=== PATIENT | female | born 1960 | race Caucasian/White ===

== ENCOUNTER → 2020-11-10 11:43 | Outpatient (CLI) | payer OTHER, MEDICAID, SELFPAY ==
--- NOTE | 2020-11-10 11:51 | DI.CT.S_ITS ---
PROCEDURE: CT ABDOMEN PELVIS WO CON INDICATIONS: Unspecified renal colic TECHNIQUE: Noncontrast 5 mm thick sections acquired from the diaphragms to the symphysis. 5 mm thick coronal and sagittal reformats were then performed. For radiation dose reduction, the following was used: automated exposure control, adjustment of mA and/or kV according to patient size. COMPARISON: [facility], , CT IVP, 09/19/2006, 10:28. FINDINGS: Image quality: Excellent. Lung bases: Lung bases are clear. Heart size is normal. Urinary system: Both kidneys are normal in size. No kidney stones. No hydronephrosis or perinephric fat stranding. Both ureters appear non-dilated throughout their expected courses. Bladder wall thickness is normal; no calcified bladder stones. Other solid organs: Liver is normal in size. Gallbladder is unremarkable. Pancreas is normal in contours. Spleen is normal in size. No adrenal nodules. Peritoneum and bowel: Unenhanced bowel loops demonstrate normal wall thickness and caliber. No free fluid or air. Scant sigmoid colon diverticula without acute inflammation. Normal appendix. Nodes and vessels: No retroperitoneal or mesenteric adenopathy by size criteria. Aorta and inferior vena cava are normal in caliber. Abdominal wall: No ventral hernias. Pelvis: No free pelvic fluid. No inguinal hernias. No pelvic adenopathy. Bones: No suspicious bony lesions. No acute vertebral body compression fractures. There is minimal grade 1 anterolisthesis of L5 on S1 secondary to bilateral L5 pars defects. Likely bone island involving the medial margin of the right inferior pubic ramus. IMPRESSION: 1. CT abdomen and pelvis without acute abnormalities to explain patient's history of renal colic. 2. Scant colonic diverticulosis without acute diverticulitis. 3. Normal appendix. 4. Grade 1 anterolisthesis of L5 on S1 secondary to bilateral L5 pars defects. Dictated by: Michael Solorzano M.D. on 11/10/2020 at 22:25 Approved by: Michael Solorzano M.D. on 11/10/2020 at 22:36
== END ==
PROVIDERS: Family Provider Physician Assistant; PCP Physician Assistant; Referring Provider Physician Assistant; Visit Provider Physician Assistant
DX: N23 Unspecified renal colic (principal); M43.17 Spondylolisthesis, lumbosacral region; Z87.442 Personal history of urinary calculi
CPT/HCPCS: 74176

== ENCOUNTER 2021-02-02 13:36 | Emergency (ER) | payer OTHER, MEDICAID, SELFPAY ==
[2021-02-02 13:40] VITALS: BP 144/72; PULSE 77; RESP 16; TEMP 36.5; O2SAT 98
--- NOTE | 2021-02-02 14:18 | ED.GENADULT ---
HPI - General Adult General Chief complaint: Eye Problems Stated complaint: SWELLING OF RIGHT EYE Time Seen by Provider: 02/02/21 13:47 Source: patient Mode of arrival: Ambulatory Limitations: no limitations History of Present Illness HPI narrative: Patient is a 60-year-old female here for evaluation of swelling under her right eye. She states that she needs started noticing the swelling this morning with the irritation was last evening. No fevers. She does wear contact lenses but is wearing glasses today. Has had dental issues in the past but none currently. Related Data Allergies Allergy/AdvReac Type Severity Reaction Status Date / Time codeine Allergy Verified 02/02/21 14:14 Penicillins Allergy Verified 02/02/21 14:14 Review of Systems Constitutional Constitutional: Denies fever(s) Eyes Eyes: Denies exophthalmos and Denies change in vision Comments: Irritation to the right eye, swelling under the right eye ENT Ears, Nose, Mouth, and Throat: Denies sore throat Respiratory Respiratory: Denies cough Integumentary/Breasts Comments: Redness in right eye Hematologic/Lymphatic On Anticoagulants: No Allergic/Immunologic Allergic/Immunologic: Denies urticaria Patient History Medical History Healthy adult Social History Smoking Status: Never smoker Smoking Status: Never smoker alcohol intake frequency: 0-2 drinks per day Substance Use Type: does not use Exam Initial Vital Signs Initial Vital Signs: Vital Signs Temperature 97.7 F 02/02/21 13:40 Pulse Rate 77 02/02/21 13:40 Respiratory Rate 16 02/02/21 13:40 Blood Pressure 144/72 H 02/02/21 13:40 Pulse Oximetry 98 02/02/21 13:40 Const General: cooperative, healthy appearing and comfortable Limitations: mental status not altered HENMT Head: normal to inspection and normocephalic Eyes General: appearance normal, both eyes and all related structures Alignment and Position: alignment normal Sclera: sclerae normal Pupils: PERRL Other: Patient does have a small white area on the inferior temporal lid consistent with stye Resp Effort & Inspection: normal respiratory effort Skin Lesions: no lesions Other: Slight redness under right eye Extrem General: normal to inspection Course Vital Signs Vital signs: Vital Signs - 8 hr 02/02/21 13:40 Temperature 97.7 F Pulse Rate 77 Respiratory Rate 16 Blood Pressure 144/72 H Pulse Oximetry 98 Medical Decision Making MDM Narrative Medical decision making narrative: Physical exam today is consistent with a stye. Low suspicion for periorbital/orbital cellulitis. Also low suspicion for foreign body. Patient was given return precautions and follow-up instructions. She expressed understanding and agreement. Discharge Plan Departure Patient Disposition: Home Clinical Impression: Hordeolum externum (stye) Instructions: DI for Hordeolum Activity Restrictions/Additional Instructions: I recommend that you where your glasses until your symptoms have resolved. You can also use warm compresses. If the redness of the swelling extends past where it currently is then you should be re-evaluated. Contact your primary provider for follow-up. Referrals: Nohelia Lakhani PA-C [Primary Care Provider] -
== END 2021-02-02 14:27 | disposition home or self-care (01) ==
PROVIDERS: Emergency Provider Emergency Medicine; Family Provider Physician Assistant; PCP Physician Assistant
DX: H00.012 Hordeolum externum right lower eyelid (principal)
CPT/HCPCS: 99281

== ENCOUNTER 2022-05-28 07:59 | Emergency (ER) | payer OTHER, MEDICAID, SELFPAY ==
[2022-05-28] VITALS (12 sets, daily range): BP systolic 140–193; BP diastolic 60–97; PULSE 55–69; RESP 18; TEMP 36.4; O2SAT 98–100; BMI 20.7
--- NOTE | 2022-05-28 08:18 | DI.CT.S_ITS ---
PROCEDURE: CT KIDNEY URETER BLADDER (KUB) INDICATIONS: left flank pain, likely stone TECHNIQUE: Axial sections were acquired from the lung bases to the pubic symphysis. Coronal and sagittal reformats were performed. For radiation dose reduction, the following was used: automated exposure control, adjustment of mA and/or kV according to patient size. COMPARISON: None. FINDINGS: Lower thorax: The lung bases are clear. Heart size normal. No hiatal hernia. Liver: Normal in size and attenuation. No contour deformity present. Biliary system: No calcified cholelithiasis or pericholecystic inflammation. No intra or extrahepatic bile duct dilatation. Pancreas: Unremarkable without mass or inflammation evident. Spleen: Normal in size and density. Adrenals: Normal morphology and density. Reproductive system: Unremarkable as visualized. Urinary system: Normal renal size and attenuation. No renal calculi, hydronephrosis, or solid mass present. Urinary bladder unremarkable. Gastrointestinal system: The bowel is unremarkable without evidence of bowel obstruction or inflammation. The stomach appears unremarkable. Appendix: No findings to suggest acute appendicitis. Peritoneal spaces: No mesenteric or retroperitoneal adenopathy. No free air. No free fluid. Vasculature: The IVC, aorta and iliac vasculature are unremarkable. Abdominal wall: Abdominal wall intact without evidence of ventral or inguinal hernias. Musculoskeletal: Normal bone mineralization. Degenerative disc disease and arthropathy noted in lower lumbar spine. Bilateral L5 pars defects associated with grade 1 anterior spondylolisthesis No acute fractures. IMPRESSION: 1. No evidence of renal calculi or obstructive uropathy. No hydronephrosis. 2. Incidental grade 1 isthmic spondylolisthesis at L4-5 Approved by: Bal Ayers M.D. on 05/28/2022 at 8:20
[2022-05-28] MEDS: HYDROMORPHONE 0.5 MG INJ IV ×2 (08:23→10:47)
[2022-05-28] MEDS: KETOROLAC 30 MG/ML VIAL 15 MG IV (08:24)
[2022-05-28] MEDS: SODIUM CHLORIDE 0.9% 1,000 ML 1000 ML IV (08:24)
[2022-05-28 08:27] LABS: Add Manual Diff / Slide Review NO; Basophils Absolute Auto 100 /uL (0-100); Basophils Percent Auto 0.8 % (0-2); Eosinophils Absolute Auto 200 /uL (0-450); Eosinophils Percent Auto 2.2 % (2-4); Hematocrit 41.2 % (36-46); Hemoglobin 13.7 g/dL (12.0-16.0); Lymphocytes Absolute Auto 2300 /uL (1100-4500); Mean Corpuscular HGB Conc 33.4 % (30-36); Mean Corpuscular Hemoglobin 30.8 PG (26-34); Mean Corpuscular Volume 92.4 fL (80-100); Monocytes Absolute Auto 900 /uL (0-900); Monocytes Percent Auto 9.3 % (3-14); Neutrophils Absolute Auto 6400 /uL (1500-7000); Neutrophils Percent Auto 64.7 % (50-75); Platelet Count 198 X10^3/uL (150-400); Red Blood Cell Count 4.46 X10^6/uL (4.0-5.2); Red Cell Distribution Width 13.6 % (11.6-14.8); White Blood Cell Count 9.9 X10^3/uL (4.5-11.0)
--- NOTE | 2022-05-28 08:29 | ED.GENADULT ---
HPI - General Adult General Chief complaint: Abdominal Pain Stated complaint: thinks she has a kidney stone x2days Time Seen by Provider: 05/28/22 08:04 Source: patient and family Mode of arrival: Ambulatory History of Present Illness HPI narrative: 62-year-old woman who lives on [facility] history of a kidney stone over 10 years ago presents with left flank pain that began [place] the . [place]. 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 She is not noticed dramatic hematuria, fevers, chills, actual abdominal pain, chest pain, palpitations, dyspnea, orthopnea, headaches. She has been nauseated but has not actually vomited. She has not had diarrhea or constipation. Related Data Previous Rx's Medication Instructions Recorded cephalexin 500 mg capsule 500 mg PO TID #30 caps 02/04/21 dexamethasone 4 mg tablet 10 mg PO DAILY #5 tabs 05/28/22 (Decadron) oxycodone-acetaminophen 5 mg-325 1 tab PO Q6H PRN pain #14 tabs 05/28/22 mg tablet (Percocet) Allergies Allergy/AdvReac Type Severity Reaction Status Date / Time codeine Allergy Verified 02/04/21 15:53 Penicillins Allergy Verified 02/04/21 15:53 Review of Systems Review of Systems Narrative: Remainder of complete review of systems is otherwise unremarkable except for that included in the HPI. Patient History Medical History (Updated 05/28/22 @ 11:09 by Neda Barcenas MD) Asthma Candidiasis of vulva and vagina Carpal tunnel syndrome (~2014) Chicken pox Fibroids (~2000) Healthy adult Hearing loss (~1979) Human papilloma virus (~2020) Kidney stones Menopausal and female climacteric states Mumps Osteoporosis (~2014) Personal history of urinary calculi Pure hypercholesterolemia, unspecified Spondylolisthesis, lumbar region Unspecified asthma, uncomplicated Unspecified renal colic Surgical History (Updated 03/05/21 @ 19:58 by Page Sahni) Anesthesia History of left knee surgery (~2001) History of neck surgery (~1984) History of right knee surgery (~2006) Family History (Updated 03/05/21 @ 20:01 by Page Sahni) Father Cancer of kidney History of heart attack Hyperlipidemia Mother Automobile accident Sister Hyperlipidemia Social History Smoking Status: Never smoker Smoking Status: Never smoker alcohol intake frequency: 0-2 drinks per day Substance Use Type: marijuana Exam Initial Vital Signs Initial Vital Signs: Vital Signs Pulse Rate 65 05/28/22 08:05 Pulse Oximetry 100 05/28/22 08:05 General: Healthy appearing, in moderate distress. Able to give a complete and coherent history. Well-nourished well-developed HEENT: Moist mucous membranes, normal sclera with reactive pupils, Neck: supple Respiratory: Lungs are clear to auscultation, no wheezing no rales no rhonchi. Full and symmetrical air movement Cardiac: Regular rate and rhythm no murmurs no bruits Abdomen: Soft, nontender, good bowel tones, left flank pain Skin: Warm and dry, no rashes Neurologic: Grossly neurologically intact with no obvious asymmetries or abnormalities Extremities: No trauma, well perfused Psych: Cooperative, appropriate insight and affect Course Orders Ordered: ED Orders 05/28/22 08:06 Complete Blood Count AUTO DIFF Stat Comprehensive Metabolic Panel Stat 05/28/22 08:18 CT kidney ureter bladder (KUB) Stat 05/28/22 10:10 Urinalysis and Microscopic Stat Hydromorphone HCl (Hydromorphone 0.5 Mg Inj) 0.5 mg IV Q15MIN PRN PRN Reason: Pain, Last Admin: 05/28/22 10:47 Dose: 0.5 mg Documented By: Admin: 05/28/22 08:23 Dose: 0.5 mg Documented By: MARIA FERNANDA Discontinued Medications Sodium Chloride (Normal Saline 0.9%) 1,000 mls @ 1,000 mls/hr IV BOLUS ONE Stop: 05/28/22 09:14 Last Infusion: 05/28/22 09:29 Dose: 0 mls/hr Documented By: MARIA FERNANDA Admin: 05/28/22 08:24 Dose: 1,000 mls/hr Documented By: MARIA FERNANDA Ketorolac Tromethamine (Ketorolac 30 Mg/Ml Vial) 15 mg IV NOW ONE Stop: 05/28/22 08:16 Last Admin: 05/28/22 08:24 Dose: 15 mg Documented By: MARIA FERNANDA Vital Signs Vital signs: Vital Signs - 8 hr 05/28/22 08:12 05/28/22 08:05 05/28/22 08:15 Temperature 97.5 F L Pulse Rate 62 65 Respiratory Rate 18 Blood Pressure 189/91 H 193/69 H Pulse Oximetry 100 100 Oxygen Delivery Method Room Air 05/28/22 08:15 05/28/22 08:30 Temperature Pulse Rate 69 69 Respiratory Rate 18 Blood Pressure 146/65 H Pulse Oximetry 100 100 Oxygen Delivery Method Medical Decision Making Lab Data Result diagrams: 05/28/22 08:06 05/28/22 08:06 Labs: Lab Results 05/28/22 05/28/22 05/28/22 Range/Units 08:06 08:06 10:10 WBC 9.9 (4.5-11.0) X10^3/uL RBC 4.46 (4.0-5.2) X10^6/uL Hgb 13.7 (12.0-16.0) g/dL Hct 41.2 (36-46) % MCV 92.4 (80-100) fL MCH 30.8 (26-34) PG MCHC 33.4 (30-36) % RDW 13.6 (11.6-14.8) % Plt Count 198 (150-400) X10^3/uL Neut % (Auto) 64.7 (50-75) % Lymph % (Auto) 23.0 L (25-40) % [place] % (Auto) 9.3 (3-14) % Eos % (Auto) 2.2 (2-4) % Baso % (Auto) 0.8 (0-2) % Neut # (Auto) 6400 (8713-2659) /uL Lymph # (Auto) 2300 (3908-0092) /uL [place] # (Auto) 900 (0-900) /uL Eos # (Auto) 200 (0-450) /uL Baso # (Auto) 100 (0-100) /uL Sodium 139 (137-145) mmol/L Potassium 3.8 (3.4-5.1) mmol/L Chloride 104 (98-107) mmol/L Carbon Dioxide 27 (22-32) mmol/L BUN 8 (7-17) mg/dL Creatinine 0.64 (0.52-1.04) mg/dL Estimated GFR > 60 (>60) mL/min BUN/Creatinine Ratio 12.5 (6-22) Glucose 100 (80-110) mg/dL Calcium 9.5 (8.4-10.2) mg/dL Total Bilirubin 0.8 (0.2-1.3) mg/dL AST 25 (14-36) IU/L ALT 15 (<35) IU/L Alkaline Phosphatase 69 (38-126) U/L Total Protein 7.5 (6.3-8.2) g/dL Albumin 4.7 (3.5-5.0) g/dL Globulin 2.8 (1.7-4.1) g/dL Albumin/Globulin Ratio 1.7 (1.0-2.8) Urine Color Yellow Urine Appearance Clear Urine pH 6.5 (4.5-8.0) Ur Specific [place] <=1.005 (1.000-1.035) Urine Protein Negative (Negative) Urine Glucose (UA) Negative (Negative) g/dL Urine Ketones Trace H (NEGATIVE) Urine Occult Blood Negative (Negative) Urine Nitrate Negative (Negative) Urine Bilirubin Negative (NEGATIVE) Urine Urobilinogen 0.2 (0.2) E.U./dL Ur Leukocyte Esterase Negative (NEGATIVE) Imaging Data CT scan - abdomen/pelvis: Radiologist's Impression: FINDINGS: ? Lower thorax: The lung bases are clear.? Heart size normal.? No hiatal hernia. ? Liver:? Normal in size and attenuation. No contour deformity present. ? Biliary system:? No calcified cholelithiasis or pericholecystic inflammation.? No intra or extrahepatic bile duct dilatation. ? Pancreas:? Unremarkable without mass or inflammation evident. ? Spleen:? Normal in size and density. ? Adrenals:? Normal morphology and density. ? Reproductive system:? Unremarkable as visualized. ? Urinary system:? Normal renal size and attenuation. No renal calculi, hydronephrosis, or solid mass present.? Urinary bladder unremarkable. ? Gastrointestinal system:? The bowel is unremarkable without evidence of bowel obstruction or inflammation. The stomach appears unremarkable. ? Appendix:? No findings to suggest acute appendicitis. ? Peritoneal spaces:? No mesenteric or retroperitoneal adenopathy.? No free air.? No free fluid.? ? Vasculature:? The IVC, aorta and iliac vasculature are unremarkable. ? Abdominal wall:? Abdominal wall intact without evidence of ventral or inguinal hernias. ? Musculoskeletal:? Normal bone mineralization.? Degenerative disc disease and arthropathy noted in lower lumbar spine.? Bilateral L5 pars defects associated with grade 1 anterior spondylolisthesis? No acute fractures.? ? IMPRESSION: ? 1. No evidence of renal calculi or obstructive uropathy.? No hydronephrosis. ? 2. Incidental grade 1 isthmic spondylolisthesis at L4-5? Approved by: Bal Ayers M.D. on 05/28/2022 at 8:20? [facility] Narrative Medical decision making narrative: 62-year-old woman presents with severe acute left flank pain with concerns that it is a kidney stone. She has been told she has kidney stones in the past. On further questioning she has never had documented stones, has persistently had negative CT scans yet has continued to be diagnosed with renal colic. On more careful exam she does have some paraspinous tenderness along the lumbar spine with radicular pain into the buttock and the upper hip. Manipulation of this area does reproduce the pain that she is experiencing. I suspect that she in fact does not have kidney stones and probably did not have kidney stones previously. She clearly has low back pain with radicular findings. Pain is controlled at this point will discharge her home with a brief course of Percocet to combined with Tylenol and a physical therapy recommendation. There is no evidence of diverticulitis, appendicitis, kidney stones, hydronephrosis, pyelonephritis, bowel obstruction, shingles. She will follow-up with physical therapist on [facility] and she is safe for home discharge. Discharge Plan Departure Patient Disposition: Home Clinical Impression: Acute low back pain with radicular symptoms, duration less than 6 weeks Instructions: DI for Back Pain With Sciatica Activity Restrictions/Additional Instructions: Thank you for coming in today Your workup was entirely unremarkable. Your lab work does not suggest any intra-abdominal infections or obstruction. The CT scan does not show kidney stones, masses tumors or other abnormalities. There is no evidence of acute kidney infection and your urine is clear suggesting no urinary tract infection or kidney stone. On physical exam you are quite tender along the left side of your lumbar spine with pain going down into her upper buttock. This is much more common with radicular back pain. Using 400 mg of ibuprofen (2 [id number] pills) and 1 Tylenol every 6 hours can be very helpful in controlling pain. For severe pain using to ibuprofen and 1 Percocet can be helpful. I am also going to give you a prescription for Decadron, a steroid to help with inflammation to use for 3 days only. Your 1st dose was given in the emergency department. Prescriptions have been sent to [facility] in [place] Please do contact your physical therapist for further evaluation If you find that you are getting worse or develop any new symptoms, please feel free to return to the emergency department for further evaluation. Prescriptions: New dexamethasone [Decadron] 4 mg tablet 10 mg PO DAILY Qty: 5 0RF oxycodone-acetaminophen [Percocet] 5-325 mg tablet 1 tab PO Q6H PRN (Reason: pain) Qty: 14 0RF No Action cephalexin 500 mg capsule 500 mg PO TID Qty: 30 0RF Referrals: Nohelia Lakhani PA-C [Primary Care Provider] -
[2022-05-28 08:33] LABS: Alanine Aminotransferase 15 IU/L (<35); Albumin 4.7 g/dL (3.5-5.0); Albumin Globulin Ratio 1.7 (1.0-2.8); Alkaline Phosphatase 69 U/L (38-126); Aspartate Aminotransferase 25 IU/L (14-36); BUN Creatinine Ratio 12.5 (6-22); Bilirubin Total 0.8 mg/dL (0.2-1.3); Blood Urea Nitrogen 8 mg/dL (7-17); Calcium 9.5 mg/dL (8.4-10.2); Carbon Dioxide 27 mmol/L (22-32); Chloride 104 mmol/L (98-107); Estimated Glomerular Filt Rate > 60 mL/min (>60); Globulin 2.8 g/dL (1.7-4.1); Glucose 100 mg/dL (80-110); HEMOLYSIS < 15 (0-50); Potassium 3.8 mmol/L (3.4-5.1); Sodium 139 mmol/L (137-145); Total Protein 7.5 g/dL (6.3-8.2)
[2022-05-28 10:41] LABS: Appearance Urine UA CLEAR; Bilirubin Urine UA NEGATIVE (NEGATIVE); Color Urine UA YELLOW; Glucose Urine UA NEGATIVE (Negative); Ketones Urine UA TRACE (NEGATIVE); Leukocyte Esterase Urine UA NEGATIVE (NEGATIVE); Nitrite Urine UA NEGATIVE (Negative); Occult Blood Urine UA NEGATIVE (Negative); Protein Urine UA NEGATIVE (Negative); Specific Gravity Urine UA <=1.005 (1.000-1.035); Urobilinogen Urine UA 0.2 E.U./dL (0.2)
[2022-05-28 10:51] LABS: pH Urine UA 6.5 (4.5-8.0)
[2022-05-28 11:00] LABS: Bacteria Urine Occasional (0-1); Culture Indicated Urine Cult Not Indicated; RBC Urine 0-1/HPF (0-5/HPF); WBC Urine 0-1/HPF (0-5/HPF)
[2022-05-28] MEDS: DEXAMETHASONE 10 MG/ML VIAL IV (11:40)
== END 2022-05-28 12:03 | disposition home or self-care (01) ==
PROVIDERS: Emergency Provider Emergency Medicine; Family Provider Physician Assistant; PCP Physician Assistant
DX: M54.16 Radiculopathy, lumbar region (principal); R11.0 Nausea; Z87.442 Personal history of urinary calculi
CPT/HCPCS: 36415; 74176; 80053; 81001; 85025; 96361; 96374; 96375; 96376; 99284; J1100; J1170; J1885

== ENCOUNTER → 2022-06-14 14:22 | Outpatient (CLI) | payer OTHER, MEDICAID, SELFPAY | PROVIDERS: Family Provider Physician Assistant; PCP Physician Assistant; Visit Provider Physician Assistant | DX: R10.9 Unspecified abdominal pain (principal) | CPT/HCPCS: 81002; 87086 ==

== ENCOUNTER → 2022-06-27 10:55 | Outpatient (CLI) | payer OTHER, MEDICAID, SELFPAY ==
--- NOTE | 2022-06-27 10:58 | DI.US.S_ITS ---
PROCEDURE: US RENAL COMPLETE INDICATIONS: LEFT FLANK PAIN TECHNIQUE: Real-time scanning was performed of the kidneys and bladder, with image documentation. COMPARISON: None. FINDINGS: Kidneys: Kidneys are normal in size. Right kidney measures 10.6 cm long; left kidney measures 11.1 cm long. Right renal cortical thickness is 1.4 cm; left renal cortical thickness is 1.8 cm. Renal cortical echotexture is normal. No hydronephrosis or nephrolithiasis. No suspicious solid mass lesions. Bladder: Pre-void bladder volume is 406 mL. Post-void residual is 0 mL. Pre-void images demonstrate no intraluminal masses or stones. On pre-void images, bilateral ureteral jets are noted with color Doppler interrogation. (Of note, ureteral jets may not be detectable in up to 25% of cases due to insufficient differences in specific gravity between ureteral and bladder urine). Miscellaneous: No free pelvic fluid. IMPRESSION: No hydronephrosis. No postvoid residual. Dictated by: Marybel Lai M.D. on 06/27/2022 at 14:17 Approved by: Marybel Lai M.D. on 06/27/2022 at 14:17
== END ==
PROVIDERS: Family Provider Physician Assistant; PCP Physician Assistant; Referring Provider Physician Assistant; Visit Provider Physician Assistant
DX: N23 Unspecified renal colic (principal)
CPT/HCPCS: 76770

== ENCOUNTER → 2023-01-04 09:33 | Outpatient (CLI) | payer OTHER, MEDICAID, SELFPAY ==
[2023-01-04 19:56] LABS: Add Manual Diff / Slide Review NO; Basophils Absolute Auto 0 /uL (0-100); Basophils Percent Auto 0.5 % (0-2); Eosinophils Absolute Auto 200 /uL (0-450); Hemoglobin 13.3 g/dL (12.0-16.0); Lymphocytes Absolute Auto 2200 /uL (1100-4500); Lymphocytes Percent Auto 23.1 % (25-40); Mean Corpuscular Volume 91.2 fL (80-100); Monocytes Absolute Auto 800 /uL (0-900); Monocytes Percent Auto 8.1 % (3-14); Neutrophils Absolute Auto 6300 /uL (1500-7000); Neutrophils Percent Auto 66.3 % (50-75); Platelet Count 169 X10^3/uL (150-400); Red Blood Cell Count 4.28 X10^6/uL (4.0-5.2); Red Cell Distribution Width 13.6 % (11.6-14.8); White Blood Cell Count 9.5 X10^3/uL (4.5-11.0)
[2023-01-04 20:01] LABS: Alanine Aminotransferase 14 IU/L (<35); Albumin 4.1 g/dL (3.5-5.0); Albumin Globulin Ratio 1.6 (1.0-2.8); Alkaline Phosphatase 69 U/L (38-126); Aspartate Aminotransferase 24 IU/L (14-36); BUN Creatinine Ratio 18.9 (6-22); Bilirubin Total 0.7 mg/dL (0.2-1.3); Blood Urea Nitrogen 10 mg/dL (7-17); Calcium 9.3 mg/dL (8.4-10.2); Carbon Dioxide 32 mmol/L (22-32); Chloride 104 mmol/L (98-107); Cholesterol 190 mg/dL (140-199); Estimated Glomerular Filt Rate > 60 mL/min (>60); Globulin 2.5 g/dL (1.7-4.1); Glucose 93 mg/dL (80-110); HDL Cholesterol 62 mg/dL (40-60); HEMOLYSIS < 15 (0-50); LDL Cholesterol Calculated 114 mg/dL (<100); Potassium 4.1 mmol/L (3.4-5.1); Sodium 140 mmol/L (137-145); Total Protein 6.6 g/dL (6.3-8.2); Triglycerides 70 mg/dL (35-150)
== END ==
PROVIDERS: Family Provider Physician Assistant; PCP Physician Assistant; Visit Provider Physician Assistant
DX: Z13.6 Encounter for screening for cardiovascular disorders (principal); Z79.899 Other long term (current) drug therapy
CPT/HCPCS: 80053; 80061; 85025

== ENCOUNTER 2024-03-28 15:04 | Emergency (ER) | payer OTHER, MEDICAID, SELFPAY ==
[2024-03-28 15:07] VITALS: BP 132/62; PULSE 90; RESP 16; TEMP 36.9; O2SAT 97; BMI 21.7
--- NOTE | 2024-03-28 15:12 | DI.US.S_ITS ---
PROCEDURE: US PERIPH VENOUS LOW EXTREM RT INDICATIONS: r/o DVT RLE 5 weeks post knee surg TECHNIQUE: Real-time imaging, as well as color and pulse Doppler interrogation, were performed of the lower extremity deep veins from the inguinal ligament to the popliteal fossa, with documentation of the visualized calf veins. COMPARISON: None. FINDINGS: The common femoral, femoral, popliteal, and the visualized calf veins are normally compressible, and free of intraluminal thrombus. Color and pulse Doppler demonstrate normal phasic intraluminal flow. There is normal augmentation response to distal compression maneuver. Heterogeneous fluid collection in the proximal medial calf with no significant internal vascularity measuring 10.2 x 5.4 x 2.1 cm. Ovoid probable Urbano's cyst in the popliteal fossa measuring 4.9 x 2.4 x 1.2 cm. IMPRESSION: 1. No findings of lower extremity deep venous thrombosis. 2. Heterogeneous fluid collection in the proximal medial calf measuring 10.2 x 5.4 x 2.1 cm likely represents a hematoma. Dictated by: Ta Hall M.D. on 03/28/2024 at 16:13 Approved by: Ta Hall M.D. on 03/28/2024 at 16:15
--- NOTE | 2024-03-28 15:41 | ED_ITS ---
HPI - Extremity Injury (Lower) <BAKARI Cline - Last Filed: 03/28/24 16:39> General Chief Complaint: Extremity Injury, Lower Stated Complaint: sent by [place], suspected blood clot in rt leg Time Seen by Provider: 03/28/24 15:25 History of Present Illness HPI Narrative: 63-year-old female, never smoker, was brought to the emergency department with right leg swelling x5 weeks. Patient had a ACL removal surgery on her right knee 5 weeks ago and has had persistent swelling ever since. Patient was told to come to the emergency department to rule out a DVT. No previous history of a DVT. Related Data Previous Rx's Medication Instructions Recorded albuterol sulfate 90 mcg/actuation See Rx Instructions inhalation 01/03/24 aerosol inhaler (Ventolin HFA) Q4-6H PRN shortness of breath or wheezing #8.5 grams fluticasone 100 mcg-salmeterol 50 1 inh inhalation BID daily asthma 01/03/24 mcg/dose blistr powdr for therapy #60 ea inhalation (Advair Diskus) Allergies Allergy/AdvReac Type Severity Reaction Status Date / Time codeine Allergy Verified 01/03/24 14:16 Penicillins Allergy Verified 01/03/24 14:16 Review of Systems <BAKARI Cline - Last Filed: 03/28/24 16:39> Review of Systems Narrative: Narrative: See HPI. GENERAL: Denies chills, fatigue, fever, sweats. HEENT: Denies sinus pain, ear pain, sore throat, difficulty swallowing, dizziness. RESPIRATORY: Denies dyspnea, cough, wheezing, sputum. CARDIOVASCULAR: Denies chest pain, palpitations, edema. GASTROINTESTINAL: Denies nausea, vomiting, abdominal pain, diarrhea, constipation. : Denies dysuria, frequency, incontinence, hematuria, urinary retention, flank pain. MSK: Denies weakness, joint pain, or bony pain. Endorses right lower extremity swelling. SKIN: Denies rash, skin lesions, or pruritis. NEUROLOGIC: Denies weakness, dizziness, headache, numbness, confusion. PSYCHIATRIC: No concerning psychosocial issues. Patient History <BAKARI Cline - Last Filed: 03/28/24 16:39> Medical History Asthma Osteoporosis (~2014) Carpal tunnel syndrome (~2014) Mumps Chicken pox Hearing loss (~1979) Human papilloma virus (~2020) Fibroids (~2000) Kidney stones Unspecified renal colic Unspecified asthma, uncomplicated Spondylolisthesis, lumbar region Pure hypercholesterolemia, unspecified Personal history of urinary calculi Menopausal and female climacteric states Candidiasis of vulva and vagina Healthy adult Surgical History Anesthesia History of neck surgery (~1984) History of left knee surgery (~2001) History of right knee surgery (~2006) Family History Father Cancer of kidney History of heart attack Hyperlipidemia Mother Automobile accident Sister Hyperlipidemia Social History Smoking Status: Never smoker Smoking Status: Never smoker alcohol intake frequency: 0-2 drinks per day Substance Use Type: marijuana Exam <BAKARI Cline - Last Filed: 03/28/24 16:39> Narrative Exam Narrative: Exam Narrative: GENERAL: This is a well-nourished, well-developed patient, in no acute distress. HEAD: Atraumatic. Normocephalic. EYES: Pupils equal round and reactive. Extraocular motions intact. No scleral icterus, injection or drainage. ENT: Nose without bleeding, purulent drainage. Airway patent. CARDIOVASCULAR: Regular rate and rhythm without murmurs, peripheral pulses intact, cap refill <2 sec. RESPIRATORY: Breath sounds equal and clear bilaterally. No wheezes, rales, or rhonchi. No cough. No increased respiratory effort. No accessory muscle use. GASTROINTESTINAL: Abdomen soft, non-tender, nondistended without guarding or rebound. No suprapubic pain. MSK: Moves all extremities. Normal range of motion, no clubbing or edema. Neurovascularly intact. Left ankle measures 22.2 cm and right ankle measures 23.8 cm. Left calf measures 33 cm and right calf measures 36 cm. NEURO: A&O x 3. SKIN: Warm, dry, no rashes or lesions noted. Initial Vital Signs Initial Vital Signs: Vital Signs Temperature 98.5 F 03/28/24 15:07 Pulse Rate 90 03/28/24 15:07 Respiratory Rate 16 03/28/24 15:07 Blood Pressure 132/62 03/28/24 15:07 Pulse Oximetry 97 03/28/24 15:07 Oxygen Delivery Method Room Air 03/28/24 15:07 Reviewed <Sarah Chavarria DO - Last Filed: 03/30/24 07:28> Initial Vital Signs Initial Vital Signs: Vital Signs Temperature 98.5 F 03/28/24 15:07 Pulse Rate 90 03/28/24 15:07 Respiratory Rate 16 03/28/24 15:07 Blood Pressure 132/62 03/28/24 15:07 Pulse Oximetry 97 03/28/24 15:07 Oxygen Delivery Method Room Air 03/28/24 15:07 Scores <BAKARI Cline - Last Filed: 03/28/24 16:39> Homar' Criteria for DVT Active Cancer (Treatment within 6 months): No Bedridden recently >3 days or major surgery within 4 weeks: No Calf Swelling >3cm compared to other leg: Yes Collateral (nonvericose) superficial veins present: No Entire leg swollen: Yes Localized tenderness along the deep vein system: Yes Pitting edema, confined to symtomatic leg: Yes Paralysis, paresis, or recent plaster immobilization of ext: No Previously documented DVT: No Alternative dx to DVT as likely or more likely: Yes Homar' criteria for DVT: 2 <Sarah Chavarria DO - Last Filed: 03/30/24 07:28> Rubén Criteria for DVT Homar' criteria for DVT: 2 Course <BAKARI Cline - Last Filed: 03/28/24 16:39> Orders Ordered: ED Orders 03/28/24 15:12 US periph venous low extrem rt Stat Vital Signs Vital signs: Vital Signs - 8 hr 03/28/24 15:07 Temperature 98.5 F Pulse Rate 90 Respiratory Rate 16 Blood Pressure 132/62 Pulse Oximetry 97 Oxygen Delivery Method Room Air <Sarah Chavarria DO - Last Filed: 03/30/24 07:28> Orders Ordered: ED Orders 03/28/24 15:12 US periph venous low extrem rt Stat Vital Signs Vital signs: Vital Signs - 8 hr 03/28/24 15:07 Temperature 98.5 F Pulse Rate 90 Respiratory Rate 16 Blood Pressure 132/62 Pulse Oximetry 97 Oxygen Delivery Method Room Air MDM - Extremity Injury (Lower) <BAKARI Cline - Last Filed: 03/28/24 16:39> Differential Diagnosis Differential diagnosis: Likely other (DVT, cellulitis, postoperative swelling) Imaging Data US - DVT: Radiologist's Impression: [address] [address] Ultrasound Report Signed Patient: Daniel Goyal MR#: [id number] : 1960 Acct:[id number] Age/Sex: 63 / F Date of Service: 03/28/24 Loc: ED Accession Number: [id number] Procedure: US periph venous low extrem rt Ordering Provider: Sarah Chavarria D.O. PROCEDURE: US PERIPH VENOUS LOW EXTREM RT INDICATIONS: r/o DVT RLE 5 weeks post knee surg TECHNIQUE: Real-time imaging, as well as color and pulse Doppler interrogation, were performed of the lower extremity deep veins from the inguinal ligament to the popliteal fossa, with documentation of the visualized calf veins. COMPARISON: None. FINDINGS: The common femoral, femoral, popliteal, and the visualized calf veins are normally compressible, and free of intraluminal thrombus. Color and pulse Doppler demonstrate normal phasic intraluminal flow. There is normal augmentation response to distal compression maneuver. Heterogeneous fluid collection in the proximal medial calf with no significant internal vascularity measuring 10.2 x 5.4 x 2.1 cm. Ovoid probable Urbano's cyst in the popliteal fossa measuring 4.9 x 2.4 x 1.2 cm. IMPRESSION: 1. No findings of lower extremity deep venous thrombosis. 2. Heterogeneous fluid collection in the proximal medial calf measuring 10.2 x 5.4 x 2.1 cm likely represents a hematoma. Dictated by: Ta Hall M.D. on 03/28/2024 at 16:13 Approved by: Ta Hall M.D. on 03/28/2024 at 16:15 [facility] Narrative Medical decision making narrative: 63-year-old female with right lower extremity swelling. Wells score of 2. Ultrasound reveals no DVT but a possible hematoma, fluid collection, 10 x 4 cm. Patient has an appointment with her surgeon in 2 weeks. Discussed case with Dr. Chavarria. Recommended elevation of right leg and consideration application of warm compress to help facilitate reabsorption. Suggested patient contact surgeon's office about possible repeat ultrasound in 1 week to ensure fluid collection and Urbano's cyst are not increasing in size. Discussed plan of care and return precautions with patient and spouse, who verbalized understanding and were agreeable with course of action. Discharge Plan Departure Patient Disposition: Home Clinical Impression: Right leg swelling Instructions: DI for Wound Infection Activity Restrictions/Additional Instructions: *You have been diagnosed with right leg swelling. My assessment was encouraging and your ultrasound revealed a pocket of fluid, possibly a hematoma, but there was no blood clot. As we discussed, recommended elevating the right leg, consideration of warm compress around the knee and follow up with surgeon as previously scheduled. Recommend contacting surgeon's office as a repeat ultrasound in one-week may be prudent. For any worsening symptoms, please feel free to return to the emergency department. *What to do: *Please continue to take your regular medications as directed. [ ] New medication prescriptions sent to your pharmacy: [ ] [ ] New medication written as a paper prescription [x] No new medications given *Please follow up with your primary care provider in 2-3 days, call for an appointment. Let them know you were seen in the Emergency Department and that we ask that you be seen in follow up. We will electronically transmit a record of today's note if your PCP is in our system *If you do not have a primary care provider please contact the [facility] [employer] line at [phone]. They will ask some questions about your medical history and help get you set up with a doctor in the community. ? Return to ER if you should have any new, worsening or concerning symptoms, such as worsening pain, severe headache, confusion, chest pain, difficulty breathing, fever greater than 101 F, shaking chills, persistent vomiting to the point that you cannot drink fluids, or other new or worsening symptoms. Prescriptions: No Action fluticasone propion-salmeterol [Advair Diskus] 100-50 mcg/dose blister with device 1 inh inhalation BID Qty: 60 0RF albuterol sulfate [Ventolin HFA] 90 mcg/actuation HFA aerosol inhaler See Rx Instructions inhalation Q4-6H PRN (Reason: shortness of breath or wheezing) Qty: 8.5 0RF Rx Instructions: 1 to 2 puffs inhaled every 4-6 hours PRN; Referrals: Nohelia Lakhani PA-C [Primary Care Provider] - Stand Alone Forms: Patient Portal/API ED Sign-out <Sarah Chavarria DO - Last Filed: 03/30/24 07:28> Cosign ED Attending Cosseraature Attestation: I was immediately available in the department for consultation. Case was discussed myself. Patient's vitals are appropriate no signs of infection, suspect postoperative hematoma, no active extravasation AVH ultrasound patient recommended to have follow up ultrasound make sure not having any increase in size.
[2024-03-28 16:45] VITALS: BP 116/62; PULSE 69; RESP 18; O2SAT 98
== END 2024-03-28 16:45 | disposition home or self-care (01) ==
PROVIDERS: Emergency Provider Registered Nurse; Family Provider Physician Assistant; PCP Physician Assistant
DX: R60.0 Localized edema (principal)
CPT/HCPCS: 93971; 99281; 99283

== ENCOUNTER → 2024-04-08 10:07 | Outpatient (CLI) | payer OTHER, MEDICAID, SELFPAY ==
[2024-04-08 19:44] LABS: Add Manual Diff / Slide Review NO; Basophils Absolute Auto 100 /uL (0-100); Basophils Percent Auto 1.2 % (0-2); Eosinophils Absolute Auto 100 /uL (0-450); Hematocrit 35.7 % (36-46); Hemoglobin 11.8 g/dL (12.0-16.0); Lymphocytes Absolute Auto 2200 /uL (1100-4500); Lymphocytes Percent Auto 28.8 % (25-40); Mean Corpuscular HGB Conc 33.1 % (30-36); Mean Corpuscular Hemoglobin 30.3 PG (26-34); Mean Corpuscular Volume 91.5 fL (80-100); Monocytes Absolute Auto 600 /uL (0-900); Monocytes Percent Auto 8.4 % (3-14); Neutrophils Absolute Auto 4500 /uL (1500-7000); Neutrophils Percent Auto 59.6 % (50-75); Platelet Count 288 X10^3/uL (150-400); Red Cell Distribution Width 12.9 % (11.6-14.8); White Blood Cell Count 7.5 X10^3/uL (4.5-11.0)
[2024-04-08 19:51] LABS: HEMOLYSIS < 15 (0-50); Iron 38 ug/dL (37-170)
[2024-04-08 20:01] LABS: Alanine Aminotransferase 12 IU/L (<35); Albumin 4.1 g/dL (3.5-5.0); Albumin Globulin Ratio 1.4 (1.0-2.8); Alkaline Phosphatase 107 U/L (38-126); Aspartate Aminotransferase 57 IU/L (14-36); BUN Creatinine Ratio 16.9 (6-22); Bilirubin Total 0.3 mg/dL (0.2-1.3); Blood Urea Nitrogen 10 mg/dL (7-17); Calcium 9.4 mg/dL (8.4-10.2); Carbon Dioxide 29 mmol/L (22-32); Chloride 105 mmol/L (98-107); Cholesterol 179 mg/dL (140-199); Estimated Glomerular Filt Rate > 60 mL/min (>60); Globulin 2.9 g/dL (1.7-4.1); Glucose 93 mg/dL (80-110); HDL Cholesterol 48 mg/dL (40-60); HEMOLYSIS < 15 (0-50); LDL Cholesterol Calculated 118 mg/dL (<100); Potassium 4.2 mmol/L (3.4-5.1); Sodium 141 mmol/L (137-145); Triglycerides 65 mg/dL (35-150)
[2024-04-08 20:12] LABS: Transferrin 239 mg/dL (206-381)
[2024-04-08 20:16] LABS: Percent Iron Saturation 13 % (15-50); Total Iron Binding Capacity 304 ug/dL (265-497)
[2024-04-08 20:26] LABS: TSH w/ Reflex to FT4 0.83 uIU/mL (0.47-4.68)
[2024-04-08 20:41] LABS: Ferritin 35 ng/mL (11-264)
[2024-04-08 20:45] LABS: Vitamin B12 297 pg/mL (239-931)
[2024-04-08 20:48] LABS: Hep C Virus Ab w/Reflex Quant NEGATIVE s/c (NEGATIVE)
== END ==
PROVIDERS: Family Provider Physician Assistant; PCP Physician Assistant; Visit Provider Physician Assistant
DX: Z12.11 Encounter for screening for malignant neoplasm of colon (principal); Z79.899 Other long term (current) drug therapy; R68.89 Other general symptoms and signs; Z13.6 Encounter for screening for cardiovascular disorders; D64.9 Anemia, unspecified; Z11.59 Encounter for screening for other viral diseases
CPT/HCPCS: 80053; 80061; 82607; 82728; 83540; 83550; 84443; 85025; 86803

== ENCOUNTER → 2024-04-19 08:00 | Outpatient (CLI) | payer OTHER, MEDICAID, SELFPAY ==
[2024-04-22 19:36] LABS: Fecal Immunochemical Test Negative (Negative)
== END ==
PROVIDERS: Family Provider Physician Assistant; PCP Physician Assistant; Visit Provider Physician Assistant
DX: Z13.6 Encounter for screening for cardiovascular disorders (principal); Z79.899 Other long term (current) drug therapy; R68.89 Other general symptoms and signs; Z12.11 Encounter for screening for malignant neoplasm of colon
CPT/HCPCS: 82274

== ENCOUNTER → 2024-05-31 13:09 | Outpatient (CLI) | payer OTHER, MEDICAID, SELFPAY ==
[2024-05-31 18:23] LABS: C-Reactive Protein Quant 3.7 mg/dL (<1.0)
[2024-05-31 18:39] LABS: Erythrocyte Sedimentation Rate 31 MM/HR (0-20)
[2024-05-31 18:58] LABS: Rheumatoid Factor 9.1 IU/mL (<12.0)
[2024-06-05 10:10] LABS: ANA Screen, IFA Negative (.)
== END ==
PROVIDERS: Family Provider Physician Assistant; PCP Physician Assistant; Visit Provider Family Medicine
DX: M35.3 Polymyalgia rheumatica (principal); R29.898 Other symptoms and signs involving the musculoskeletal system
CPT/HCPCS: 85651; 86038; 86140; 86430

== ENCOUNTER → 2024-10-16 12:15 | Outpatient (CLI) | payer OTHER, SELFPAY ==
--- NOTE | 2024-10-16 12:17 | DI.RAD.S_ITS ---
PROCEDURE: XR DEXA AXIAL SKELETON INDICATIONS: menopause COMPARISON: None. FINDINGS: Lumbar Spine: Bone mineral density 0.879 g/cm2, T score -1.5. Left Femoral Neck: Bone mineral density 0.624 g/cm2, T score -2.0. Left Hip: Bone mineral density 0.765 g/cm2, T score -1.5. Fracture Risk Calculation (when applicable): 10-year fracture risk of a major osteoporotic fracture 9.9 percent and of a hip fracture 1.5 percent. (T score greater or equal to -1.0 to: NORMAL) (T score from -1.1 to -2.4: OSTEOPENIA) (T score less than or equal to -2.5: OSTEOPOROSIS) IMPRESSION: Low bone mineral density (osteopenia) by WHO classification. Follow-up guidelines as follows: Osteoporosis: Consider a repeat DEXA and Vertebral Fracture Assessment (VFA) exam in 2 years or sooner if medically necessary, to reassess this patient's status. Osteopenia: Consider a repeat DEXA in 2-3 years to reassess this patient's status, or if there is a new clinical indication. Normal: Consider a repeat DEXA in 5 years or sooner, or if there is a new clinical indication. All treatment decisions require clinical judgment and consideration of individual patient factors, including patient preferences, comorbidities, previous drug use, risk factors not captured in the FRAX model (e.g., frailty, falls, vitamin D deficiency, increased bone turnover, interval significant decline in bone density ) and possible under- or over-estimation of fracture risk by FRAX. In addition, the NOF Guide recommends that FDA-approved medical therapies be considered in postmenopausal women and men age >= 50 years with a: * Hip or vertebral (clinical or morphometric) fracture * T-score of <=-2.5 at the spine or hip * Ten-year fracture probability by FRAX of >= 3% for hip fracture or >=20% for major osteoporotic fracture. Dictated by: Wyatt Bartlett M.D. on 10/16/2024 at 16:25 Approved by: Wyatt Bartlett M.D. on 10/16/2024 at 16:27
== END ==
PROVIDERS: Family Provider Physician Assistant; PCP Physician Assistant; Referring Provider Family Medicine; Visit Provider Family Medicine
DX: Z78.0 Asymptomatic menopausal state (principal); M85.89 Other specified disorders of bone density and structure, multiple sites
CPT/HCPCS: 77080

== ENCOUNTER 2025-02-07 15:37 | Emergency (ER) | payer OTHER, SELFPAY ==
[2025-02-07 15:51] VITALS: BP 155/72; PULSE 77; RESP 20; TEMP 36.6; O2SAT 100; BMI 20.4
--- NOTE | 2025-02-07 15:57 | DI.RAD.S_ITS ---
PROCEDURE: XR CHEST 1V INDICATIONS: Chest Pain TECHNIQUE: One view of the chest was acquired. COMPARISON: [facility] ([place] [facility]), CR, XR CHEST 2V, 01/03/2024, 15:36. FINDINGS: Surgical changes and devices: None. Lungs and pleura: Lungs are clear, yet hyperexpanded. No pleural effusions or pneumothorax. Mediastinum: Mediastinal contours appear normal. Heart size is normal. Bones and chest wall: No suspicious bony lesions. Age-appropriate bony degenerative changes are seen. Overlying soft tissues appear unremarkable. IMPRESSION: Hyperexpanded lungs, without an acute cardiopulmonary process identified. Dictated by: Darren Nicolas M.D. on 02/07/2025 at 15:31 Approved by: Darren Nicolas M.D. on 02/07/2025 at 15:32
--- NOTE | 2025-02-07 16:02 | EKG_ITS ---
[address] [address] Test Date: 2025-02-07 Pat Name: Daniel Goyal Department: [facility] Room: Gender: Female [employer] Packer: CANDIDA : 1960 Requested By: Order Number: [id number] Reading MD: Kenji Yang MD Measurements Intervals [place] Rate: 72 P: 72 NV: 194 QRS: 11 QRSD: 90 T: 48 QT: 392 QTc: 429 Interpretive Statements Normal sinus rhythm Possible Left atrial enlargement Electronically Signed On 02-10-2025 11:52:47 PDT by Kenji Yang MD
[2025-02-07 16:20] LABS: Add Manual Diff / Slide Review NO; Basophils Absolute Auto 100 /uL (0-100); Basophils Percent Auto 1.1 % (0-2); Eosinophils Absolute Auto 200 /uL (0-450); Eosinophils Percent Auto 1.8 % (2-4); Hematocrit 39.6 % (36-46); Hemoglobin 13.4 g/dL (12.0-16.0); Lymphocytes Absolute Auto 2800 /uL (1100-4500); Lymphocytes Percent Auto 32.1 % (25-40); Mean Corpuscular HGB Conc 33.9 % (30-36); Mean Corpuscular Hemoglobin 31.3 PG (26-34); Mean Corpuscular Volume 92.4 fL (80-100); Monocytes Absolute Auto 800 /uL (0-900); Monocytes Percent Auto 9.1 % (3-14); Neutrophils Absolute Auto 4800 /uL (1500-7000); Neutrophils Percent Auto 55.9 % (50-75); Platelet Count 199 X10^3/uL (150-400); Red Blood Cell Count 4.29 X10^6/uL (4.0-5.2); Red Cell Distribution Width 14.3 % (11.6-14.8); White Blood Cell Count 8.6 X10^3/uL (4.5-11.0)
[2025-02-07 16:26] LABS: Prothrombin Time 11.2 SECONDS (9.4-12.5)
[2025-02-07 16:29] LABS: PTT Partial Thromboplastin Tim 40 SECONDS (25.1-36.5)
[2025-02-07 16:30] LABS: Alanine Aminotransferase 16 IU/L (<35); Albumin 4.5 g/dL (3.5-5.0); Albumin Globulin Ratio 1.7 (1.0-2.8); Alkaline Phosphatase 77 U/L (38-126); Aspartate Aminotransferase 34 IU/L (14-36); BUN Creatinine Ratio 31.5 (6-22); Bilirubin Total 0.6 mg/dL (0.2-1.3); Blood Urea Nitrogen 17 mg/dL (7-17); Calcium 9.5 mg/dL (8.4-10.2); Carbon Dioxide 23 mmol/L (22-32); Chloride 106 mmol/L (98-107); Creatine Kinase 50 U/L (30-135); Estimated Glomerular Filt Rate > 60 mL/min (>60); Globulin 2.6 g/dL (1.7-4.1); Glucose 89 mg/dL (70-99); HEMOLYSIS < 15 (0-50); Lipase 62 U/L (23-300); Potassium 4.5 mmol/L (3.4-5.1); Sodium 138 mmol/L (137-145); Total Protein 7.1 g/dL (6.3-8.2)
[2025-02-07 16:42] LABS: NT-proBNP (BNP-Adult 18+) 45 pg/mL (<125); Troponin I < 0.012 ng/mL (0.01-0.034)
[2025-02-07 17:29] VITALS: BP 166/84; PULSE 66; RESP 16; O2SAT 97
--- NOTE | 2025-02-07 18:00 | EKG_ITS ---
[address] [address] Test Date: 2025-02-07 Pat Name: Daniel Goyal Department: [facility] Room: Gender: Female Automatic Clipper: CANDIDA : 1960 Requested By: Order Number: [id number] Reading MD: Kenji Yang MD Measurements Intervals [place] Rate: 69 P: 36 TN: 194 QRS: 23 QRSD: 88 T: 53 QT: 406 QTc: 435 Interpretive Statements Normal sinus rhythm Electronically Signed On 02-10-2025 11:52:20 PDT by Kenji Yang MD
--- NOTE | 2025-02-07 18:09 | PC.NURSE ---
Pt laying on stretcher in position of comfort, RA, NAD, A&Ox4, breathing even/equal/unlabored at this time. Updated pt to waiting for results of EKG and repeat trop.
[2025-02-07 18:35] LABS: Troponin I < 0.012 ng/mL (0.01-0.034)
[2025-02-07 18:44] VITALS: BP 166/80; PULSE 70; RESP 16; O2SAT 99
--- NOTE | 2025-02-07 19:17 | ED.CHESTPAIN ---
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 At time of evaluation patient stating symptoms symptoms have completely resolved, nonexertional in nature, nonpleuritic in nature. Patient denies any other symptoms such as headache visual disturbances shortness breath fever chills nausea vomiting abdominal pain or any other GI / symptoms at this time. Related Data Previous Rx's ?Medication ?Instructions ?Recorded albuterol sulfate 90 mcg/actuation See Rx Instructions inhalation 01/03/24 aerosol inhaler (Ventolin HFA) Q4-6H PRN shortness of breath or wheezing #8.5 grams fluticasone 100 mcg-salmeterol 50 1 inh inhalation BID daily asthma 01/03/24 mcg/dose blistr powdr for therapy #60 ea inhalation (Advair Diskus) Allergies Allergy/AdvReac Type Severity Reaction Status Date / Time codeine Allergy Mild ITCHING Verified 08/16/24 10:44 Penicillins Allergy Mild ITCHING Verified 08/16/24 10:44 Review of Systems Review of Systems Narrative: General: Denies fever, chills, weight loss HEENT: Denies headache, eye drainage, eye irritation, head trauma, sore throat, voice change Cardiovascular: Positive chest pain, denies palpitations, tachycardia Respiratory: Denies any shortness of breath, cough, wheeze, stridor GI/: Denies any abdominal pain, nausea, vomiting, diarrhea, bright red blood per rectum, melanotic stools, urinary frequency, urinary retention, dysuria, hematuria MSK: Denies any joint pain, muscle pains, swelling Skin: Denies any rashes, lesions, discoloration Neuro: Denies any headache, lightheadedness, dizziness, fainting, weakness Psych: Denies SI/HI Patient History Medical History (Updated 02/07/25 @ 19:23 by Carlitos Muro DO) Osteoporosis (~2014) Carpal tunnel syndrome (~2014) Mumps Chicken pox Hearing loss (~1979) Human papilloma virus (~2020) Fibroids (~2000) Kidney stones Unspecified renal colic Unspecified asthma, uncomplicated Spondylolisthesis, lumbar region Pure hypercholesterolemia, unspecified Personal history of urinary calculi Menopausal and female climacteric states Candidiasis of vulva and vagina Healthy adult Surgical History (Updated 04/02/24 @ 08:08 by Nohelia Lakhani PA-C) Anesthesia History of neck surgery (~1984) History of left knee surgery (~2001) History of right knee surgery (~2006) Family History Father Cancer of kidney History of heart attack Hyperlipidemia Mother Automobile accident Sister Hyperlipidemia Social History Smoking Status: Never smoker Smoking Status: Never smoker alcohol intake frequency: 0-2 drinks per day Exam Narrative Exam Narrative: General: Cooperative, well-developed, not in acute distress HEENT: Normocephalic, atraumatic, PERRLA, normal sclera, eyelids normal Neck: Active full range of motion, atraumatic Chest: Normal to inspection, negative crepitus, no overlying erythema ecchymosis Respiratory: Normal respiratory effort, not in acute respiratory distress, clear to auscultation bilaterally negative cough, wheeze, tachypnea, rhonchi, rales Cardiology: Regular rate rhythm negative gallop, murmur, rubs GI/: No tenderness to palpation, soft, non rigid, normal to inspection, exam deferred MSK: Full active range of motion in all 4 extremities, atraumatic, no tenderness to palpation of any bony prominences Skin: No rashes or lesions noted Neuro: Alert awake oriented x3, moves all 4 extremities spontaneously, cranial nerves intact, able to answer all questions appropriately follows commands appropriately Psych: Cooperative, negative suicidal or homicidal ideations Initial Vital Signs Initial Vital Signs: Vital Signs Temperature 98 F 02/07/25 15:51 Pulse Rate 77 02/07/25 15:51 Respiratory Rate 20 02/07/25 15:51 Blood Pressure 155/72 H 02/07/25 15:51 Pulse Oximetry 100 02/07/25 15:51 Oxygen Delivery Method Room Air 02/07/25 15:51 Course Orders Ordered: ED Orders 02/07/25 15:57 XR chest 1V Stat EKG-12 Lead Stat 02/07/25 16:03 Complete Blood Count AUTO DIFF Stat Comprehensive Metabolic Panel Stat Lipase Stat Magnesium Stat NT-proBNP (BNP-Adult 18+) Stat PTT Partial Thromboplastin Randy Stat Prothrombin Time INR Stat Troponin & CK Cardiac Panel Stat 02/07/25 18:00 EKG-12 Lead Stat 02/07/25 18:07 Trop I [Troponin I] Stat Discontinued Medications Aspirin (Aspirin 81 Mg Chew Tab) 324 mg PO NOW ONE Stop: 02/07/25 15:58 Vital Signs Vital signs: Vital Signs - 8 hr 02/07/25 15:51 02/07/25 17:29 02/07/25 18:44 Temperature 98 F Pulse Rate 77 66 70 Respiratory Rate 20 16 16 Blood Pressure 155/72 H 166/84 H 166/80 H Pulse Oximetry 100 97 99 Oxygen Delivery Method Room Air Room Air Room Air MDM - Chest Pain Differential Diagnosis Differential diagnosis: Likely pneumothorax, stable angina, atypical chest pain, st elevation myocardial infarction, costochondritis, chest pain and other ( pneumonia, electrolyte abnormality) Lab Data 02/07/25 16:03 02/07/25 16:03 Labs: Lab Results 02/07/25 02/07/25 Range/Units 16:03 18:07 WBC 8.6 (4.5-11.0) X10^3/uL RBC 4.29 (4.0-5.2) X10^6/uL Hgb 13.4 (12.0-16.0) g/dL Hct 39.6 (36-46) % MCV 92.4 (80-100) fL MCH 31.3 (26-34) PG MCHC 33.9 (30-36) % RDW 14.3 (11.6-14.8) % Plt Count 199 (150-400) X10^3/uL Neut % (Auto) 55.9 (50-75) % Lymph % (Auto) 32.1 (25-40) % Harlan % (Auto) 9.1 (3-14) % Eos % (Auto) 1.8 L (2-4) % Baso % (Auto) 1.1 (0-2) % Neut # (Auto) 4800 (7558-9611) /uL Lymph # (Auto) 2800 (0517-3984) /uL Harlan # (Auto) 800 (0-900) /uL Eos # (Auto) 200 (0-450) /uL Baso # (Auto) 100 (0-100) /uL PT 11.2 (9.4-12.5) SECONDS INR 1.0 (0.9-1.3) APTT 40 H (25.1-36.5) SECONDS Sodium 138 (137-145) mmol/L Potassium 4.5 (3.4-5.1) mmol/L Chloride 106 (98-107) mmol/L Carbon Dioxide 23 (22-32) mmol/L BUN 17 (7-17) mg/dL Creatinine 0.54 (0.52-1.04) mg/dL Estimated GFR > 60 (>60) mL/min BUN/Creatinine Ratio 31.5 H (6-22) Glucose 89 (70-99) mg/dL Calcium 9.5 (8.4-10.2) mg/dL Magnesium 2.0 (1.6-2.3) mg/dL Total Bilirubin 0.6 (0.2-1.3) mg/dL AST 34 (14-36) IU/L ALT 16 (<35) IU/L Alkaline Phosphatase 77 (38-126) U/L Total Creatine Kinase 50 (30-135) U/L Troponin I < 0.012 < 0.012 (0.01-0.034) ng/mL NT-Pro-B Natriuret Pep 45 (<125) pg/mL Total Protein 7.1 (6.3-8.2) g/dL Albumin 4.5 (3.5-5.0) g/dL Globulin 2.6 (1.7-4.1) g/dL Albumin/Globulin Ratio 1.7 (1.0-2.8) Lipase 62 (23-300) U/L Imaging Data Chest x-ray: Radiologist's Impression: [address] [address] XRay Report Signed Patient: Daniel Goyla MR#: [id number] : 1960 Acct:[id number] Age/Sex: 64 / F Date of Service: 02/07/25 Loc: ED Accession Number: [id number] Procedure: XR chest 1V Ordering Provider: Sarah Chavarria D.O. PROCEDURE: XR CHEST 1V INDICATIONS: Chest Pain TECHNIQUE: One view of the chest was acquired. COMPARISON: [facility] ([place]), CR, XR CHEST 2V, 01/03/2024, 15:36. FINDINGS: Surgical changes and devices: None. Lungs and pleura: Lungs are clear, yet hyperexpanded. No pleural effusions or pneumothorax. Mediastinum: Mediastinal contours appear normal. Heart size is normal. Bones and chest wall: No suspicious bony lesions. Age-appropriate bony degenerative changes are seen. Overlying soft tissues appear unremarkable. IMPRESSION: Hyperexpanded lungs, without an acute cardiopulmonary process identified. ECG Data Interpretation: EKG interpreted by ED physician sinus 72 beats per minute QTC 429 normal axis no STEMI repeat EKG interpreted ED physician sinus 69 QTC 435 normal axis no STEMI MDM Narrative Medical decision making narrative: 64-year-old female with a past medical history of polymyalgia rheumatica presenting for chest pain started around 10:00 a.m., at time evaluation symptoms have completely resolved without intervention, patient had lab work imaging EKG performed here in the emergency department, EKG x2 nonischemic in nature, chest x-ray without any acute cardiopulmonary abnormality, troponin negative x2, the remainder of her lab work is unremarkable, patient's heart score 1, patient instructed to follow up with PCP and Cardiology in outpatient setting she verbalized understanding of this and agrees to being discharged home with outpatient follow up Discharge Plan Departure Patient Disposition: Home Clinical Impression: Chest pain Instructions: DI for Chest Pain Activity Restrictions/Additional Instructions: please follow up with primary care and Cardiology in outpatient setting Please read the discharge instructions sheet carefully and bring all papers to all doctor follow-up visits, as it may contain information that your doctor may want to see. Disease processes change and evolve, if your symptoms worsen or if you develop any new symptoms that are concerning to you please return for evaluation. Your evaluation today does not show any evidence of any life-threatening/serious illnesses requiring admission to the hospital or surgery. Please follow-up with your doctor for re-evaluation in approximately 1 day. Seek immediate medical attention for any worrisome symptoms. *If you do not have a primary care provider please contact the [facility] Resource line at [phone]. They will ask some questions about your medical history and help get you set up with a doctor in the community. Prescriptions: No Action fluticasone propion-salmeterol [Advair Diskus] 100-50 mcg/dose blister with device 1 inh inhalation BID Qty: 60 0RF albuterol sulfate [Ventolin HFA] 90 mcg/actuation HFA aerosol inhaler See Rx Instructions inhalation Q4-6H PRN (Reason: shortness of breath or wheezing) Qty: 8.5 0RF Rx Instructions: 1 to 2 puffs inhaled every 4-6 hours PRN; Referrals: Luis Antonio Bro MD [Physician, Cardiology] Nohelia Lakhani PA-C [Primary Care Provider, Medical] Stand Alone Forms: Patient Portal/API
[2025-02-07 19:50] VITALS: BP 164/93; PULSE 78; RESP 14; O2SAT 97
== END 2025-02-07 19:53 | disposition home or self-care (01) ==
PROVIDERS: Emergency Medicine; Emergency Provider Student in an Organized Health Care Education/Training Program; Family Provider Physician Assistant; PCP Physician Assistant
DX: R07.9 Chest pain, unspecified (principal)
CPT/HCPCS: 71045; 80053; 82550; 83690; 83735; 83880; 84484; 85025; 85610; 85730; 93005; 99283; 99284

== ENCOUNTER → 2025-07-07 06:40 | Outpatient (CLI) | payer OTHER, SELFPAY | LOC: LAB 09-26 06:40 | PROVIDERS: PCP Family Medicine; Referring Provider Physician Assistant; Visit Provider Physician Assistant | DX: Z12.11 Encounter for screening for malignant neoplasm of colon (principal) | CPT/HCPCS: 82274 ==

== ENCOUNTER → 2025-07-14 10:33 | Outpatient (CLI) | payer BC, SELFPAY ==
[2025-07-14 11:47] LABS: Add Manual Diff / Slide Review NO; Hematocrit 38.9 % (36-46); Hemoglobin 13.2 g/dL (12.0-16.0); Lymphocytes Absolute Auto 2500 /uL (1100-4500); Mean Corpuscular HGB Conc 33.9 % (30-36); Mean Corpuscular Hemoglobin 31.5 PG (26-34); Mean Corpuscular Volume 93.0 fL (80-100); Platelet Count 241 X10^3/uL (150-400)
[2025-07-14 12:21] LABS: Cholesterol 228 mg/dL (140-199); HDL Cholesterol 86 mg/dL (40-60); HEMOLYSIS < 15 (0-50); Iron 81 ug/dL (37-170); Triglycerides 94 mg/dL (35-150)
[2025-07-14 12:22] LABS: Blood Urea Nitrogen 9 mg/dL (7-17); Calcium 9.5 mg/dL (8.4-10.2); Carbon Dioxide 26 mmol/L (22-32); Chloride 106 mmol/L (98-107); Estimated Glomerular Filt Rate > 60 mL/min (>60); Glucose 91 mg/dL (70-99); HEMOLYSIS < 15 (0-50); Potassium 4.2 mmol/L (3.4-5.1); Sodium 140 mmol/L (137-145)
[2025-07-14 12:31] LABS: Percent Iron Saturation 24 % (15-50); Total Iron Binding Capacity 339 ug/dL (265-497); Transferrin 308 mg/dL (206-381)
[2025-07-14 17:24] LABS: Thyroid Stimulating Hormone 1.33 uIU/mL (0.47-4.68)
[2025-07-14 17:32] LABS: Ferritin 17 ng/mL (11-264)
[2025-07-14 20:49] LABS: Free T4, Direct Thyroxine 1.38 ng/dL (0.78-2.19)
== END ==
PROVIDERS: PCP Family Medicine; Referring Provider Family Medicine; Visit Provider Physician Assistant
DX: R79.82 Elevated C-reactive protein (CRP) (principal); I10 Essential (primary) hypertension; R63.4 Abnormal weight loss; D64.9 Anemia, unspecified; Z13.6 Encounter for screening for cardiovascular disorders; M35.3 Polymyalgia rheumatica
CPT/HCPCS: 36415; 80048; 80061; 82728; 83540; 83550; 84439; 84443; 84480; 85025; 85651; 86140

== ENCOUNTER → 2025-08-04 10:48 | Outpatient (CLI) | payer BC, SELFPAY ==
--- NOTE | 2025-08-04 10:50 | DI.RAD.S_ITS ---
PROCEDURE: XR DEXA AXIAL SKELETON INDICATIONS: bone density screening COMPARISON: [facility], CR, XR DEXA AXIAL SKELETON, 10/16/2024, 12:52 FINDINGS: Lumbar Spine: Bone mineral density is 0.891 g/cm2, T score -1.4,. Left Femoral Neck: Bone mineral density is 0.610 g/cm2, T score -2.2. Left Hip: Bone mineral density 0.781 g/cm2, T score -1.3,. Fracture Risk Calculation (when applicable): 10-year fracture risk of a major osteoporotic fracture 10 percent and of a hip fracture 1.7 percent. (T score greater or equal to -1.0 to: NORMAL) (T score from -1.1 to -2.4: OSTEOPENIA) (T score less than or equal to -2.5: OSTEOPOROSIS) IMPRESSION: Osteopenia Follow-up guidelines as follows: Osteoporosis: Consider a repeat DEXA and Vertebral Fracture Assessment (VFA) exam in 2 years or sooner if medically necessary, to reassess this patient's status. Osteopenia: Consider a repeat DEXA in 2-3 years to reassess this patient's status, or if there is a new clinical indication. Normal: Consider a repeat DEXA in 5 years or sooner, or if there is a new clinical indication. All treatment decisions require clinical judgment and consideration of individual patient factors, including patient preferences, comorbidities, previous drug use, risk factors not captured in the FRAX model (e.g., frailty, falls, vitamin D deficiency, increased bone turnover, interval significant decline in bone density ) and possible under- or over-estimation of fracture risk by FRAX. In addition, the NOF Guide recommends that FDA-approved medical therapies be considered in postmenopausal women and men age >= 50 years with a: * Hip or vertebral (clinical or morphometric) fracture * T-score of <=-2.5 at the spine or hip * Ten-year fracture probability by FRAX of >= 3% for hip fracture or >=20% for major osteoporotic fracture. Approved by: Bal Ayers M.D. on 08/04/2025 at 12:44
== END ==
PROVIDERS: PCP Family Medicine; Referring Provider Family Medicine; Visit Provider Physician Assistant
DX: M85.89 Other specified disorders of bone density and structure, multiple sites (principal); Z78.0 Asymptomatic menopausal state
CPT/HCPCS: 77080